=== PATIENT | male | born 1985 | race African-American/Black ===

== ENCOUNTER 2018-01-20 18:11 | Emergency (ER) | payer MEDICAID ==
[~2018-01-20] VITALS: Ht 185.4 cm; Wt 67.0 kg
[2018-01-20] MEDS ORDERED: TETANUS, DIPHTHERIA, PERTUSSIS VAC/PF 0.5ML (>7YR OLD) IM ONE (18:30)
[2018-01-20] MEDS ORDERED: IBUPROFEN 600MG TABLET PO ONE (18:45)
[2018-01-20 19:04] VITALS: BP 109/69
== END 2018-01-20 19:28 | disposition home or self-care (01) ==
LOC: ER 18:11
DX: S61.210A Laceration without foreign body of right index finger without damage to nail, initial encounter (principal); W27.8XXA Contact with other nonpowered hand tool, initial encounter; Y93.89 Activity, other specified; Y92.89 Other specified places as the place of occurrence of the external cause; Z23 Encounter for immunization; F17.210 Nicotine dependence, cigarettes, uncomplicated; F12.90 Cannabis use, unspecified, uncomplicated
CPT/HCPCS: 73140; 90471; 90715; 99284; X7700